=== PATIENT | male | born 1980 | race African-American/Black ===

== ENCOUNTER 2016-08-13 22:56 | Emergency (ER) | payer SELFPAY ==
[~2016-08-13] VITALS: Ht 167.6 cm; Wt 63.7 kg
--- OUTSIDE RECORDS SUMMARY | 2016-08-13 23:00 | XMS REPORT | Referral Summary ---
Author Organization Unknown Address Unknown Phone Unavailable Care Team Providers Care Stack Yield Engineer Name Role Phone No PCP, Pt States Primary Care Physician [phone] Encounter VC Date(s): 05/31/14 - 05/31/14 [facility], Jp [address] [place] [id number] Discharge Disposition: Home or Self Care Attending Physician: Abisai Arnold DO Admitting Physician: Abisai Arnold DO Referring Physician: No PCP, Pt States Vital Signs Most recent to 1 oldest [Reference Range]: Temperature Tympanic 36.5 degC [36.6-38.1 degC] *LOW* (05/31/14 6:23 PM) Peripheral Pulse 62 bpm Rate [60-100 bpm] (05/31/14 6:23 PM) Blood Pressure 110/72 mmHg [90-140/60-90 mmHg] (05/31/14 6:23 PM) Most recent to 1 oldest [Reference Range]: SpO2 98 % (05/31/14 6:23 PM) Problem List Condition Effective Dates Status Health Status Informant Tobacco Active patient user(Confirmed) Allergies, Adverse Reactions, Alerts No Known Medication Allergies Medications Bactrim DS 800 mg-160 mg oral tablet 1 tabs, Oral, BID, X 10 days, # 20 tabs, 0 Refill(s), Pharmacy: [id number] Start Date: 05/31/14 Stop Date: 06/10/14 Status: Ordered Results No data available for this section Immunizations No data available for this section Procedures No data available for this section Social History Social History Type Response Smoking Status Current every day smoker; Tobacco use per day: Less than Pack Assessment and Plan No data available for this section
--- OUTSIDE RECORDS SUMMARY | 2016-08-13 23:00 | XMS REPORT | Referral Summary ---
Author Organization Unknown Address Unknown Phone Unavailable Care Team Providers Care Senior Sales Associate Name Role Phone No PCP, Pt States Primary Care Physician [phone] Encounter VC Date(s): 06/27/14 - 06/27/14 [facility] [address] [place] [id number] Discharge Diagnosis: Acute sore throat NOS Discharge Diagnosis: Flu Discharge Disposition: Home or Self Care Attending Physician: Rabia Chin MD Admitting Physician: Rabia Chin MD Referring Physician: No PCP, Pt States Vital Signs Most recent to 1 oldest [Reference Range]: Temperature Tympanic 37.4 degC [36.6-38.1 degC] (06/27/14 7:08 PM) Peripheral Pulse 78 bpm Rate [60-100 bpm] (06/27/14 7:08 PM) Blood Pressure 102/70 mmHg [90-140/60-90 mmHg] (06/27/14 7:08 PM) Most recent to 1 oldest [Reference Range]: SpO2 100 % (06/27/14 7:08 PM) Problem List Condition Effective Dates Status Health Status Informant Tobacco Active patient user(Confirmed) Allergies, Adverse Reactions, Alerts No Known Medication Allergies Medications Tamiflu 75 mg oral capsule 1 caps, Oral, BID, X 5 days, # 10 caps, 0 Refill(s), Pharmacy: [id number], 1 caps Oral BID,x5 days Start Date: 06/27/14 Stop Date: 07/02/14 Status: Ordered Tessalon 200 mg oral capsule 1 caps, Oral, TID, as needed for cough, X 10 days, # 30 caps, 0 Refill(s), Pharmacy: [id number], 1 caps Oral TID,x10 days,PRN:as needed for cough Start Date: 06/27/14 Stop Date: 07/07/14 Status: Ordered Results No data available for this section Immunizations No data available for this section Procedures No data available for this section Social History Social History Type Response Smoking Status Current every day smoker; Tobacco use per day: Less than Pack Assessment and Plan Extracted from: Title: Ambulatory Patient Education Author: Rabia Chin MD Date: 06/27/14 Family Medicine Influenza, Adult Influenza ("the flu") is a viral infection of the respiratory tract. It occurs more often in winter months because people spend more time in close contact with one another. Influenza can make you feel very sick. Influenza easily spreads from person to person (contagious ). CAUSES Influenza is caused by a virus that infects the respiratory tract. You can catch the virus by breathing in droplets from an infected person's cough or sneeze. You can also catch the virus by touching something that was recently contaminated with the virus and then touching your mouth, nose, or eyes. SYMPTOMS Symptoms typically last 4 to 10 days and may include: Fever. Chills. Headache, body aches, and muscle aches. Sore throat. Chest discomfort and cough. Poor appetite. Weakness or feeling tired. Dizziness. Nausea or vomiting. DIAGNOSIS Diagnosis of influenza is often made based on your history and a physical exam. A nose or throat swab test can be done to confirm the diagnosis. RISKS AND COMPLICATIONS You may be at risk for a more severe case of influenza if you smoke cigarettes, have diabetes, have chronic heart disease (such as heart failure) or lung disease (such as asthma), or if you have a weakened immune system. Elderly people and women are also at risk for more serious infections. The most common complication of influenza is a lung infection (pneumonia ). Sometimes, this complication can require emergency medical care and may be life- threatening. PREVENTION An annual influenza vaccination (flu shot) is the best way to avoid getting influenza. An annual flu shot is now routinely recommended for all adults in the [place] TREATMENT In mild cases, influenza goes away on its own. Treatment is directed at relieving symptoms. For more severe cases, your caregiver may prescribe antiviral medicines to shorten the sickness. Antibiotic medicines are not effective, because the infection is caused by a virus, not by bacteria. HOME CARE INSTRUCTIONS Only take [id number] or prescription medicines for pain, discomfort, or fever as directed by your caregiver. Use a cool mist humidifier to make breathing easier. Get plenty of rest until your temperature returns to normal. This usually takes 3 to 4 days. Drink enough fluids to keep your urine clear or pale yellow. Cover your mouth and nose when coughing or sneezing, and wash your hands well to avoid spreading the virus. Stay home from work or school until your fever has been gone for at least 1 full day. SEEK MEDICAL CARE IF: You have chest pain or a deep cough that worsens or produces more mucus. You have nausea, vomiting, or diarrhea. SEEK IMMEDIATE MEDICAL CARE IF: You have difficulty breathing, shortness of breath, or your skin or nails turn bluish. You have severe neck pain or stiffness. You have a severe headache, facial pain, or earache. You have a worsening or recurring fever. You have nausea or vomiting that cannot be controlled. MAKE SURE YOU: Understand these instructions. Will watch your condition. Will get help right away if you are not doing well or get worse. Document Released: 04/11/2001 Document Revised: 10/13/2012 Document Reviewed: [facility] Patient Information 2014 Insurance [employer] [facility]. No follow up information was provided. Extracted from: Title: Office Visit Note Author: Rabia Chin MD Date: 06/27/14 Assessment/Plan Acute sore throat NOS Flu Orders: benzonatate, 1 caps, Oral, TID, as needed for cough, X 10 days, # 30 caps, 0 Refill(s), Pharmacy: [id number], 1 caps Oral TID,x10 days, PRN:as needed for cough oseltamivir, 1 caps, Oral, BID, X 5 days, # 10 caps, 0 Refill(s), Pharmacy: [id number], 1 caps Oral BID,x5 days
--- OUTSIDE RECORDS SUMMARY | 2016-08-13 23:00 | XMS REPORT | Referral Summary ---
Author Author [facility] [place], [facility] Organization [facility] [place] [facility] Address Unknown Phone Unavailable Care Team Providers Care Resident Care Aid Name Role Phone No PCP, [facility] Primary Care Physician [phone] Encounter VC Date(s): 01/09/15 - 01/09/15 [facility] ELIZABETH [place]roy [place], [address] [place] [address]- Discharge Diagnosis: STD (male) Discharge Disposition: 01-Home or Self Care Attending Physician: Buzz Davila MD Admitting Physician: Buzz Davila MD Vital Signs Most recent to 1 oldest [Reference Range]: Temperature Tympanic 36.7 degC [36.6-38.1 degC] (01/09/15 6:09 PM) Apical Heart Rate 65 bpm [60-100 bpm] (01/09/15 6:09 PM) Blood Pressure 118/66 mmHg [90-140/60-90 mmHg] (01/09/15 6:09 PM) SpO2 98 % (01/09/15 6:09 PM) Problem List Condition Effective Dates Status Health Status Informant 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) Allergies, Adverse Reactions, Alerts No Known Medication Allergies Medications No Known Medications Results No data available for this section Immunizations No data available for this section Procedures No data available for this section Social History Social History Type Response Smoking Status Current every day smoker; Tobacco use per day: Less than Pack Assessment and Plan Extracted from: Title: Ambulatory Patient Education Author: Bennett Beach PA-C Date: Family Medicine Sexually Transmitted Disease A sexually transmitted disease (STD) is a disease or infection that may be passed (transmitted) from person to person, usually during sexual activity. This may happen by way of saliva, semen, blood, vaginal mucus, or urine. Common STDs include: Gonorrhea. Chlamydia. Syphilis. HIV and AIDS. Genital herpes. Hepatitis B and C. Trichomonas. Human papillomavirus (HPV). Pubic lice. Scabies. Mites. Bacterial vaginosis. WHAT ARE CAUSES OF STDs? An STD may be caused by bacteria, a virus, or parasites. STDs are often transmitted during sexual activity if one person is infected. However, they may also be transmitted through nonsexual means. STDs may be transmitted after: Sexual intercourse with an infected person. Sharing sex toys with an infected person. Sharing needles with an infected person or using unclean piercing or tattoo needles. Having intimate contact with the genitals, mouth, or rectal areas of an infected person. Exposure to infected fluids during . WHAT ARE THE SIGNS AND SYMPTOMS OF STDs? Different STDs have different symptoms. Some people may not have any symptoms. If symptoms are present, they may include: Painful or bloody urination. Pain in the pelvis, abdomen, vagina, anus, throat, or eyes. A skin rash, itching, or irritation. Growths, ulcerations, blisters, or sores in the genital and anal areas. Abnormal vaginal discharge with or without bad odor. Penile discharge in men. Fever. Pain or bleeding during sexual intercourse. Swollen glands in the groin area. Yellow skin and eyes (jaundice). This is seen with hepatitis. Swollen testicles. Infertility. Sores and blisters in the mouth. HOW ARE STDs DIAGNOSED? To make a diagnosis, your health care provider may: Take a medical history. Perform a physical exam. Take a sample of any discharge to examine. Swab the throat, cervix, opening to the penis, rectum, or vagina for testing. Test a sample of your first morning urine. Perform blood tests. Perform a Pap test, if this applies. Perform a colposcopy. Perform a laparoscopy. HOW ARE STDs TREATED? Treatment depends on the STD. Some STDs may be treated but not cured. Chlamydia, gonorrhea, trichomonas, and syphilis can be cured with antibiotic medicine. Genital herpes, hepatitis, and HIV can be treated, but not cured, with prescribed medicines. The medicines lessen symptoms. Genital warts from HPV can be treated with medicine or by freezing, burning (electrocautery), or surgery. Warts may come back. HPV cannot be cured with medicine or surgery. However, abnormal areas may be removed from the cervix, vagina, or vulva. If your diagnosis is confirmed, your recent sexual partners need treatment. This is true even if they are symptom-free or have a negative culture or evaluation. They should not have sex until their health care providers say it is okay. HOW CAN I REDUCE MY RISK OF GETTING AN STD? Take these steps to reduce your risk of getting an STD: Use latex condoms, dental dams, and water-soluble lubricants during sexual activity. Do not use petroleum jelly or oils. Avoid having multiple sex partners. Do not have sex with someone who has other sex partners. Do not have sex with anyone you do not know or who is at high risk for an STD. Avoid risky sex practices that can break your skin. Do not have sex if you have open sores on your mouth or skin. Avoid drinking too much alcohol or taking illegal drugs. Alcohol and drugs can affect your judgment and put you in a vulnerable position. Avoid engaging in oral and anal sex acts. Get vaccinated for HPV and hepatitis. If you have not received these vaccines in the past, talk to your health care provider about whether one or both might be right for you. If you are at risk of being infected with HIV, it is recommended that you take a prescription medicine daily to prevent HIV infection. This is called pre- exposure prophylaxis (PrEP). You are considered at risk if: You are a man who has sex with other men (MSM). You are a heterosexual man or woman and are sexually active with more than one partner. You take drugs by injection. You are sexually active with a partner who has HIV. Talk with your health care provider about whether you are at high risk of being infected with HIV. If you choose to begin PrEP, you should first be tested for HIV. You should then be tested every 3 months for as long as you are taking PrEP. WHAT SHOULD I DO IF I THINK I HAVE AN STD? See your health care provider. Tell your sexual partner(s). They should be tested and treated for any STDs. Do not have sex until your health care provider says it is okay. WHEN SHOULD I GET IMMEDIATE MEDICAL CARE? Contact your health care provider right away if: You have severe abdominal pain. You are a man and notice swelling or pain in your testicles. You are a woman and notice swelling or pain in your vagina. Document Released: 07/05/2003 Document Revised: 04/19/2014 Document Reviewed: [employer] Patient Information 2015 [employer], [employer]. This information is not intended to replace advice given to you by your health care provider. Make sure you discuss any questions you have with your health care provider. No follow up information was provided. Extracted from: Title: std Author: Bennett Beach PA-C Date: 01/09/15 Assessment/Plan 1.STD (male) lab for Gonorrhea and Chlamydia was obtained; and patient treated;patient declined additionaltesting for HIV, hepatitis, HPV etc. Stated already reported to partner, and would refrain from sex for 2 weeks, discussed need for retesting in 10-14days, and mandatory reporting. Diagnosis and treatment discussed. Patient advised to follow up with PCP in 2- 3 days. If symptoms worsen at any time, patient will go to the nearest ER for further evaluation. Patient stable upon discharge, alert and orientated with no apparent distress, and indicated understanding of discharge instructions. Orders: doxycycline, 100 mg 1 caps, Oral, BID, X 7 days, # 14 caps, 0 Refill(s ), Pharmacy: [id number], 1 caps Oral BID,x7 days Addendum lab results from [facility] obtained 9.15.15 reveal +Gonorrhea, neg. Chlamydia; patient called by this afternoon, message to return call (for results). Bennett Beach PA-C on January 10, 2015 12:23:04 CDT
--- OUTSIDE RECORDS SUMMARY | 2016-08-13 23:01 | XMS REPORT | Continuity of Care Document ---
Author Author [facility] Organization [facility] Address Unknown Phone Unavailable Allergies Active Description Code Type Severity Reaction Onset Reported/Identified Relationship to Patient Clinical Status Yes No Known Medication Allergies NKMA N/A N/A 05/31/2014 Medications Problems Procedures Results Encounters ACCT No. Visit Date/Time Discharge Status Pt. Type Provider Facility Loc./Unit Complaint [id number] 10/17/2015 16:53:00 2015 23:59:00 DIS Outpatient Bennett Beach Via [facility] New IC RT EYE SWOLLEN [id number] 01/09/2015 17:48:00 2014 23:59:00 DIS Outpatient Buzz Davila [facility] New IC POSS STD [id number] 05/31/2014 17:37:00 2014 23:59:00 DIS Outpatient Abisai Arnold [facility] New [facility] POSS INFEC IN LT THIGH
[2016-08-13 23:03] VITALS: Ht 167.6 cm; Wt 63.7 kg
[2016-08-13] MEDS ORDERED: NO CURRENT HOME MEDS (23:16)
--- OUTSIDE RECORDS SUMMARY | 2016-08-13 23:23 | XMS REPORT | Continuity of Care Document ---
Author Author [facility] Organization [facility] Address Unknown Phone Unavailable Allergies Active Description Code Type Severity Reaction Onset Reported/Identified Relationship to Patient Clinical Status Yes No Known Medication Allergies NKMA N/A N/A 05/31/2014 Medications Problems Procedures Results Encounters ACCT No. Visit Date/Time Discharge Status Pt. Type Provider Facility Loc./Unit Complaint [id number] 10/17/2015 16:53:00 2015 23:59:00 DIS Outpatient Bennett Beach [facility] [place] RT EYE SWOLLEN [id number] 01/09/2015 17:48:00 2014 23:59:00 DIS Outpatient Buzz Davila [facility] New IC POSS STD [id number] 05/31/2014 17:37:00 2014 23:59:00 DIS Outpatient Abisai Arnold [facility] New [facility] POSS INFEC IN LT THIGH
--- NOTE | 2016-08-13 23:28 | ERPDOC ---
Departure Disposition Decision Date: Aug 14, 2016 Disposition Decision Time: 00:46 Disposition: 01 DISCHARGED HOME, SELF-CARE Impression Impression Impression: Primary Impression: URI (upper respiratory infection) URI type: unspecified viral URI Qualified Codes: B97.89 - Other viral agents as the cause of diseases classified elsewhere; J06.9 - Acute upper respiratory infection, unspecified Additional Impression: Viral thyroiditis Severity: Moderate Condition: Improved Seen By: Physician only Referrals: YOUR PHYSICIAN 1 Week Patient Instructions: Upper Respiratory Infection (ED) Problems/Meds/Labs Reviewed?: Yes Medications reviewed and manag: Yes Additional Instructions: You have a cold. Take nyquil/dayquil as needed for pain and fever. Push fluids. Follow up with your doctor in the next week. If you start to have trouble with anxiety, a racing heart, or fevers that don't improve with medications, follow up with your doctor to treat your thyroiditis. Departure Forms: Return to Work/School Permit Follow up care ordered?: Yes Mental Status: Alert, Oriented HPI - Cough/URI General Chief Complaint: Dyspnea/Respdistress Stated Complaint: DIFF BREATHING,DIZZY, SORE THROAT Time Seen by Provider: 23:11 Source: patient Exam Limitations: no limitations HPI - Cough/URI Initial Comments 35yo man presents to the ER tonight with a cough and fever. Pt started with a cough, congestion, and rhinorrhea yesterday. Today, sx have gotten worse and his chest feels 'tight'. Pt took some mucinex prior to going to work, but it has not helped his cough. After going to work, he felt worse, so he went to the on-site nurse who referred him to the ER for dyspnea. Occurred At: home Onset/Timing: Gradual, Getting worse Duration: 12-24 hrs Prior Episodes/Possible Cause: no prior episodes Modifying Factors: IMPROVES WITH: rest, WORSE WITH: activity, coughing Associated Symptoms: cough, earache, facial pain, fever/chills, headache, nasal congestion, nasal drainage, shortness of breath, DENIES: lightheadedness, muscle aches, sinus infection, sore throat, wheezing Hx of Similar Symptoms: No Allergies: Coded Allergies: No Known Allergies (Unverified , 08/13/16) Past History Past Medical History Pt denies signifigant H Surgical History Denies Surgeries Review of Systems Constitutional Constitutional: fever ENMT Sinuses: congestion, rhinorrhea Pulmonary Respiratory: cough, dyspnea All other Systems All Other Systems: Reviewed and Negative Physical Exam General General Nourishment: well nourished, well developed, appears stated age, no acute distress, adult, thin General Body Habitus: well groomed Vitals and Pain First Documented Vital Signs Date Time Temp Pulse Resp B/P Pulse Ox O2 Delivery O2 Flow Rate FiO2 08/13/16 23:03 97.5 78 20 128/74 98 Room Air Weight: Kilograms: 63.700 Height (feet): 5 Height (inches): 6.00 Triage Pain Scale: RN VS reviewed by Provider: Yes Eyes (brief) Eyes Brief: found: EOMI, PERRL, not found: scleral icterus ENMT (brief) ENMT Brief: FOUND: TM good light reflex, ear canals clear, mucosa moist, nasal erythema, nasal exudate, normal tonsils, pharnyx erythema, NOT FOUND: TM clear ( Clear fluid behind TM b/l) Neck (brief) Neck: FOUND: adenopathy, thyromegaly (TTP and boggy), trachea midline, NOT FOUND: JVD Respiratory (brief) Respiratory: FOUND: clear all carter, equal bilaterally, symmetrical, NOT FOUND : rales, wheezes Cardiovascular (brief) Cardiac: FOUND: regular rate, regular rhythm, NOT FOUND: click, gallop, murmur , pedal edema, peripheral edema, rub Capillary Refill: <2 sec Pulses: all distal extremities, equal, strong Abdomen (brief) Abdominal Brief: FOUND: bowel normo active x4, soft, NOT FOUND: distended, hepatosplenomegaly, pulsatile mass, tender Lymphatic (brief) Lymphatic Brief: FOUND: adenopathy, NOT FOUND: lymphedema Musculoskeletal (brief) Musculoskeletal Brief: NOT FOUND: deformity, loss of motion, spasm, tenderness Integumentary (brief) Integumentary Brief: FOUND: warm Neurologic (brief) Neurological Brief: FOUND: CN w/o gross def to obs, DTR 2/4 all extremities, gait w/o gross def to obs, motor-no gross deficits, sensory-no gross deficits, NOT FOUND: Babinski Psychiatric (brief) Psychiatric Brief: FOUND: alert, normal affect, oriented Differential Diagnoses Differential Diagnoses Considering: Acute Bronchitis, Asthma Exacerbation, Influenza, Otitis Media, Pharyngitis, Pneumonia, RSV, Sinusitis, URI, Viral Syndrome Progress Results/Orders Orders Procedure Category Date Status Time Bmp - Basic Metabolic LAB 08/13/16 Complete Panel 23:22 Cbc W/Auto LAB 08/13/16 Complete Diff-Reflex Manual 23:22 Influenza A/B By Pcr LAB 08/13/16 Logged 23:22 Chest 1 View RAD 08/13/16 Taken 23:22 Ketorolac (Toradol) PHA 08/13/16 Complete 23:30 Pseudoephedrine PHA 08/13/16 Complete (Sudafed) 23:30 Oxymetazoline Nasal PHA 08/13/16 Complete [place] (Afrin Nasal S 23:30 Tsh - Thyroid Stim LAB 08/13/16 Complete Hormone Lab Results Laboratory Tests Test 08/13/16 23:40 White Blood Count 11.2T/MM3 Red Blood Count 4.48M/MM3 Hemoglobin 13.7GM/DL Hematocrit 40.5% Mean Corpuscular Volume 90.4UM3 Mean Corpuscular Hemoglobin 30.6UUG Mean Corpuscular Hemoglobin Concent 33.8GM/DL RDW Standard Deviation 39.3FL Platelet Count 183T/MM3 Mean Platelet Volume 10.1UM3 Immature Granulocyte % (Auto) 0.1% Neutrophils (%) (Auto) 85.2% Lymphocytes (%) (Auto) 8.2% Monocytes (%) (Auto) 5.6% Eosinophils (%) (Auto) 0.7% Basophils (%) (Auto) 0.2% Absolute Immature Granulocyte (auto 0.01T/MM3 Absolute Neutrophils (auto) 9.6T/MM3 Absolute Lymphocytes (auto) 0.9T/MM3 Absolute Monocytes (auto) 0.6T/MM3 Absolute Eosinophils (auto) 0.1T/MM3 Absolute Basophils (auto) 0.0T/MM3 Turbidity < 20 Sodium Level 141MEQ/L Potassium Level 3.9MEQ/L Chloride Level 103MEQ/L Carbon Dioxide Level 29MEQ/L Anion Gap 9MEQ/L Blood Urea Nitrogen 8.0MG/DL Creatinine 1.0MG/DL Glomerular Filtration Rate Calc 86 BUN/Creatinine Ratio 8RATIO Glucose Level 92MG/DL Calculated Osmolality 269MOSM/KG Calcium Level 9.3MG/DL Icterus Index < 2 Thyroid Stimulating Hormone (TSH) 0.30MIU/L Chemistry Specimen Hemolysis < 15 Medications Current ED Medications Ketorolac Tromethamine (Toradol) 60 mg O ONCE IM Last administered on 23:48; Start 08/13/16 at 23:30; Stop 08/13/16 at 23:31; Status DC Pseudoephedrine HCl (Sudafed) 30 mg O ONCE PO Last administered on 08/13/16 23:48; Start 08/13/16 at 23:30; Stop 08/13/16 at 23:31; Status DC Oxymetazoline HCl (Afrin Nasal [place]) 2 spray O ONCE EA NOSTRIL Last administered on 08/13/16 23:47; Start 08/13/16 at 23:30; Stop 08/13/16 at 23:31 ; Status DC Progress Progress Pts sx improved with interventions here. Thyroiditis confirmed today; vitals all wnl - no indication to treat sx at this time. Discussed dx, prognosis, tx, and need for f/u all discussed with pt, who voiced understanding. Xray Xray : Xray: CXR Portable Interpretation: Normal, Interpreted by RADHA Ruiz DO Aug 13, 2016 23:28
[2016-08-13] MEDS ORDERED: KETOROLAC 60mg/2ml INJECTION IM ONE (23:30)
[2016-08-13] MEDS ORDERED: OXYMETAZOLINE 0.05% NASAL SPRAY 15 ML EA NOSTRIL ONE (23:30)
[2016-08-13] MEDS ORDERED: PSEUDOEPHEDRINE 30 MG TABLET PO ONE (23:30)
[2016-08-13 23:47] LABS: BASOPHILS % (AUTO) 0.2 % (0-2); EOSINOPHILS # (AUTO) 0.1 T/MM3 (0-0.5); EOSINOPHILS % (AUTO) 0.7 % (0-4); HCT - HEMATOCRIT 40.5 % (41-53); HGB - HEMOGLOBIN 13.7 GM/DL (13.5-17.5); IMMATURE GRANULOCYTE # (AUTO) 0.01 T/MM3 (0.00-0.03); IMMATURE GRANULOCYTE % (AUTO) 0.1 % (0.0-0.5); LYMPHOCYTES # (AUTO) 0.9 T/MM3 (1-4.8); LYMPHOCYTES % (AUTO) 8.2 % (23-45); MEAN CORPUSCULAR HGB 30.6 UUG (26-34); MEAN CORPUSCULAR HGB CONC(MCHC 33.8 GM/DL (31-37); MEAN CORPUSCULAR VOLUME 90.4 UM3 (80-100); MEAN PLATELET VOLUME 10.1 UM3 (9.4-12.4); MONOCYTES # (AUTO) 0.6 T/MM3 (0-0.8); MONOCYTES % (AUTO) 5.6 % (0-9.0); NEUTROPHILS #(AUTO)-ABSOLUTE 9.6 T/MM3 (1.8-7.7); NEUTROPHILS % (AUTO) 85.2 % (33-66); RED BLOOD COUNT 4.48 M/MM3 (4.50-5.90); WBC - WHITE BLOOD COUNT 11.2 T/MM3 (4.5-11.0)
[2016-08-14 00:02] LABS: ANION GAP 9 MEQ/L (5-15); BUN/CREATININE RATIO 8 RATIO (6-26); CALCIUM 9.3 MG/DL (8.4-10.2); CHLORIDE 103 MEQ/L (98-107); CO2 - CARBON DIOXIDE 29 MEQ/L (22-30); GLOMERULAR FILTRATION RATE 86; GLUCOSE 92 MG/DL (75-110); POTASSIUM 3.9 MEQ/L (3.6-5); SODIUM 141 MEQ/L (134-144)
--- NOTE | 2016-08-14 00:38 | NUR ---
REPORT GIVEN TO RADAMES CUELLAR AT THIS TIME.
--- NOTE | 2016-08-14 01:28 | NUR ---
INSTRUCTIONS DISMISSAL INSTRUCTIONS GIVEN TO PT VERBALIZED UNDERSTANDING OF ALL
[2016-08-14 01:30] VITALS: BP 124/71; PULSE 70; RESP 16; TEMP 97.5; O2SAT 98
--- NOTE | 2016-08-14 01:30 | NUR ---
DISMISS PT DISMISSED AMBULATORY
--- NOTE | 2016-08-14 08:22 | DI ---
Indication: ITS.REASON: Cough/baljeet PROCEDURE: CHEST 1 VIEW: Encounter: Initial Comparison: None FINDINGS: The lungs are clear. There is no abnormal airspace opacity, pleural effusion or pneumothorax identified. The heart size, pulmonary vasculature and mediastinum are within normal limits. No significant skeletal abnormality is seen. IMPRESSION: No acute cardiopulmonary abnormality. .
== END 2016-08-14 01:30 | disposition home or self-care (01) ==
LOC: ED 22:56
DX: J06.9 Acute upper respiratory infection, unspecified (principal); E06.1 Subacute thyroiditis; B97.89 Other viral agents as the cause of diseases classified elsewhere
CPT/HCPCS: 36415; 80048; 84443; 85025